=== PATIENT | male | born 2000 | race Caucasian/White ===

== ENCOUNTER 2023-11-28 07:03 | Emergency (ER) | payer OTHER, SELFPAY ==
[2023-11-28 07:04] VITALS: BP 122/71; PULSE 66; RESP 18; TEMP 36.9; O2SAT 100; BMI 22.8
[2023-11-28 07:42] LABS: Add Manual Diff / Slide Review NO; Basophils Absolute Auto 0 /uL (0-100); Basophils Percent Auto 0.3 % (0-2); Eosinophils Absolute Auto 100 /uL (0-450); Eosinophils Percent Auto 0.9 % (2-4); Hematocrit 44.2 % (41-53); Lymphocytes Absolute Auto 1500 /uL (1100-4500); Lymphocytes Percent Auto 14.8 % (25-40); Mean Corpuscular HGB Conc 33.9 % (30-36); Mean Corpuscular Hemoglobin 29.2 PG (26-34); Mean Corpuscular Volume 86.1 fL (80-100); Monocytes Absolute Auto 700 /uL (0-900); Monocytes Percent Auto 6.9 % (3-14); Neutrophils Absolute Auto 8100 /uL (1500-7000); Neutrophils Percent Auto 77.1 % (50-75); Platelet Count 234 X10^3/uL (150-400); Red Blood Cell Count 5.14 X10^6/uL (4.5-5.9); Red Cell Distribution Width 13.9 % (11.6-14.8); White Blood Cell Count 10.4 X10^3/uL (4.5-11.0)
[2023-11-28 07:58] LABS: Acetaminophen < 10 ug/mL (10-30); Alanine Aminotransferase 24 IU/L (<50); Albumin Globulin Ratio 1.6 (1.0-2.8); Alkaline Phosphatase 71 U/L (38-126); Aspartate Aminotransferase 36 IU/L (17-59); BUN Creatinine Ratio 13.3 (6-22); Bilirubin Total 0.7 mg/dL (0.2-1.3); Blood Urea Nitrogen 11 mg/dL (9-20); Calcium 9.2 mg/dL (8.4-10.2); Carbon Dioxide 30 mmol/L (22-32); Chloride 102 mmol/L (98-107); Estimated Glomerular Filt Rate > 60 mL/min (>60); Ethanol (ETOH) < 10 mg/dL; Globulin 3.2 g/dL (1.7-4.1); Glucose 102 mg/dL (70-100); HEMOLYSIS 28 (0-50); Salicylate < 1.0 mg/dL (<20); Sodium 139 mmol/L (137-145); Total Protein 8.2 g/dL (6.3-8.2)
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
[2023-11-28 08:32] LABS: Thyroid Stimulating Hormone 1.53 uIU/mL (0.47-4.68)
[2023-11-28 10:00] LABS: UR Morphine/Opiate cutoff 300 Negative (Negative); Ur Creatinine Normal (Normal); Ur Specific Gravity Normal (Normal); Urine Amphetamines Negative (Negative); Urine Barbiturates Negative (Negative); Urine Benzodiazepines Negative (Negative); Urine Cocaine Negative (Negative); Urine MDMA Negative (Negative); Urine Methadone Negative (Negative); Urine Methamphetamines Negative (Negative); Urine Oxycodone Negative (Negative); Urine Phencyclidine Negative (Negative); Urine Tetrahydrocannabinol Negative (Negative); Urine Tricyclic Antidepressant Negative (Negative); Urine pH Normal (Normal)
--- NOTE | 2023-11-28 11:52 | CM.SWNOTE ---
ED BIOLOGICAL TECHNICIAN Assessment BIOLOGICAL TECHNICIAN - Drop Wire Hanger Assessment BIOLOGICAL TECHNICIAN/Drop Wire Hanger Assessment Time Spent with Patient Start date 11/28/23 Visit Start Time 11:25 End date 11/28/23 Visit End Time 11:40 Total time Care Management spent on 15 Minutes patient visit-in minutes Mental Health Screening Include Onset, Duration, Intensity Presenting Problem Patient presents to the ED via EMS due to concern for Depression and SI. Patient denies substance use but in triage states that over the past month he was engaging in increased binge drinking, patient states last drink was 11/25/23. Patient endorses SI has been pretty consistent with thoughts of plan to overdose and in his sleep. Patient states he is having some thoughts of SI now. Precipitating Event(s) Patient endorses concern for increase in life stress with family in [place]. Patient does not go into details about this, patient states he does not talk to anyone about his SI and he does not have any local supports or friends. Patient Strengths Patient told someone at work last night about his SI when they inquired that something was wrong. Patient is voluntary to seek treatment. Current Behavioral Health Provider(s) No current provider, No rx. Include Facility, Provider, Ph. # Psych. Hx Mental Health and Chemical No formal dx, patient endorses Dependency SI with thoughts of plans, and Depression. Patient denies use of any substances, per triage patient was increasing his ETOH use in the last month but stopped drinking a few days ago. Family Hx of Behavioral Abuse None reported Psychiatric Hospitalizations (date(s)/ No hx location) Psychosocial information & Support Patient is 23 y/o male who Systems resides in [place], [place]. Patient denies any local supports or friends, patient states there is a lot of stress with his family right now. 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 Patient also works a second job at [employer] in [employer]. Patient left his phone at work when he left via EMS and missed his shift at [employer] today and requested that BIOLOGICAL TECHNICIAN call [employer] to let them know he is in the ED. Legal Concerns Legal Matters - Outstanding Issues None reported Mental Status Orientation (Person/Place/Time) A/Ox4 Stated Mood okay Affect (Congruent with Mood?) flat, somewhat congruent with mood Thought Content - Specify/Describe Patient denies visual or Obsessions, Delusions, Hallucinations auditory hallucinations, patient denies concern for paranoia. Thought Processes (Axygbvv-Ojmgqnlz-Kfgl coherent Hrtnxhph-Jmxgqfge-Uuzadptfjr- Gojbcauyriatex-Pwyyzqg-Tlpaclzjcole- Thought Blocking) Speech (Ddalqi-Vlhx-Tznzfcj-Rapid-Soft- soft, slow Loud-Pressured) Motor (Chbqvo-Lygwbjxyy-Uvgd-Other) normal Insight (Moll-Sily-Oari/Limited) fair Judgement (Vnkv-Gedu-Dpnq/Limited) fair Impulse Control (Adequate-Impaired) Adequate Memory (Zftcrbxfw-Gxpeif-Anyggh, Intact, not formally assessed Impaired-Intact) Concentration (Intact-Impaired) intact Attention (Intact-Impaired) intact Behavior (Appropriate-Inappropriate) appropriate Additional Comment calm, cooperative, and communicative. Risk Assessment Suicidal Ideation (Plan) Yes Homicidal Ideation (Plan) No Comment Patient denies HI. Patient states he has been experiencing SI for a while with thoughts of dying in his sleep. Patient states plans to overdose or something like that. Patient denies current intent to act on SI, but states that SI has been increasing with family stress. Intervention Intervention BIOLOGICAL TECHNICIAN enters room to meet with patient. Patient endorses concern for increase in life stress from family, patient endorses increase in SI with thoughts of plans. Patient states he does not talk to anybody about SI and does not have any supports he can talk to. BIOLOGICAL TECHNICIAN discusses voluntary inpatient hospitalization and [facility] and patient endorses agreement and understanding. It is the opinion of this BIOLOGICAL TECHNICIAN that patient is appropriate for and will benefit from voluntary Inpatient hospitalization for safety, crisis stabilization and medication management. BIOLOGICAL TECHNICIAN reviews this with ED provider who indicates agreement and understanding. Plan RA Plan BIOLOGICAL TECHNICIAN to seek voluntary placement for patient at [facility]. YUMIKO Salazar
[2023-11-28 12:04] LABS: COVID19 -Nasal RAPID Negative (Negative)
[2023-11-28 17:01] VITALS: BP 115/60; PULSE 61; RESP 16; TEMP 36.6; O2SAT 100
--- NOTE | 2023-11-28 17:03 | PC.NURSE ---
Patient's supervisor electric motor testing and Chief are in the room with him prior to transfer to [facility]. They gave their names and numbers for follow up/ride home: Jose D (supervisor electric motor testing): [phone] and Olivier (Chief): [phone]
--- NOTE | 2023-11-28 18:59 | CM.SWNOTE ---
Addendum entered by Amanda Molina 11/28/23 19:02: Patient's Chain of command and chief informed of patient's presentation at ED and transfer to [facility] and arrived to ED to be with patient awaiting transfer. YUMIKO Salazar Original Note: ED AP PROCESSOR Note Patient is accepted at [facility] by Dr. Chase, RN to RN is [phone]. [facility] was supposed to arrive at 1730, due to traffic transport delayed to 1900. Plan: patient to transfer to [facility] via S for voluntary inpatient tx. YUMIKO Salazar
== END 2023-11-28 19:11 ==
PROVIDERS: Emergency Provider Emergency Medicine
DX: R45.851 Suicidal ideations (principal); Z11.52 Encounter for screening for COVID-19
CPT/HCPCS: 36415; 80053; 80305; 80320; 80329; 81003; 84439; 84443; 85025; 87635; 99284; G0480

== ENCOUNTER 2024-05-02 08:53 | Emergency (ER) | payer OTHER, SELFPAY ==
[2024-05-02 09:03] VITALS: BP 120/60; PULSE 66; RESP 14; TEMP 36.4; O2SAT 98; BMI 23.6
--- NOTE | 2024-05-02 09:07 | PC.NURSE ---
Pt has a cough,nasal drainage and sore throat. Pts throat does not appear red. Pt vomited x1 last night.
--- NOTE | 2024-05-02 09:13 | ED.URI ---
HPI - URI/Sore Throat General Chief Complaint: Upper Respiratory Symptoms Stated Complaint: vomitting, sore throat, coughing Time Seen by Provider: 05/02/24 08:55 Source: patient Mode of arrival: Ambulatory History of Present Illness HPI Narrative: 24-year-old male with no reported past medical history presents with 1 day of sore throat, nonproductive cough, 2 episodes of emesis. States that this morning noted a little bit of irritation in his left eye. He was at work today and he was told to come in for evaluation. No medications taken prior to arrival. Related Data Previous Rx's Medication Instructions Recorded ondansetron 4 mg disintegrating 4 mg PO Q8H PRN nausea and 05/02/24 tablet vomiting #30 tabs Allergies Allergy/AdvReac Type Severity Reaction Status Date / Time No Known Drug Allergies Allergy Verified 05/02/24 09:03 Patient History Social History Smoking Status: Former smoker Smoking Status: Former smoker tobacco type: vaping alcohol intake frequency: a few times a week Alcohol type: beer, wine and hard liquor Exam Initial Vital Signs Initial Vital Signs: Vital Signs Temperature 97.6 F 05/02/24 09:03 Pulse Rate 66 05/02/24 09:03 Respiratory Rate 14 05/02/24 09:03 Blood Pressure 120/60 05/02/24 09:03 Pulse Oximetry 98 05/02/24 09:03 Oxygen Delivery Method Room Air 05/02/24 09:03 Const: Awake, alert, no acute distress, nontoxic appearing HEENT: Minimal left-sided conjunctival erythema, no purulent discharge, mild pharyngeal erythema without edema or exudates, TM normal bilaterally Cardiac: regular rate, regular rhythm RESP: unlabored, speaking in complete sentences without dyspnea GI: Soft, nontender, nondistended Skin: Warm, Dry, intact, no rashes Neuro: AO x3, CN II-XII grossly intact, moves all extremities Course Orders Ordered: ED Orders 05/02/24 09:18 Strep Grp A by PCR Rapid Stat Vital Signs Vital signs: Vital Signs - 8 hr 05/02/24 09:03 Temperature 97.6 F Pulse Rate 66 Respiratory Rate 14 Blood Pressure 120/60 Pulse Oximetry 98 Oxygen Delivery Method Room Air MDM - URI/Sore Throat Lab Data Labs: Lab Results 05/02/24 Range/Units 09:18 Group A Strep (PCR) Negative (Negative) MDM Narrative Medical decision making narrative: Well-appearing patient with 1 day of symptoms. Exam and history most consistent with viral syndrome, however with mild pharyngeal erythema a strep swab was obtained to rule out strep throat. Patient's eye exam more consistent with viral etiology, there was no purulent discharge or eyelid matting to suggest bacterial conjunctivitis. Strep swab negative. Patient informed of swab results, recommended supportive care measurements at home including Tylenol and ibuprofen as needed for discomfort and gnlh-sxx-nufhqks eyedrops for any irritation. Nausea medication sent to pharmacy of choice. Note for work provided. Discharge Plan Departure Patient Disposition: Home Clinical Impression: Upper respiratory infection Instructions: DI for Viral Upper Respiratory Infection -- Adult Activity Restrictions/Additional Instructions: Your strep swab was negative. This is likely a viral infection. Nausea medication has been sent to your pharmacy. Take Tylenol and ibuprofen as needed for discomfort. Use xuzr-wak-qsyxooc relief drops for your eyes as needed. If you notice significant discharge from your eyes or significant crusting in the mornings you may need to be re-evaluated for bacterial pinkeye, however at this time your exam is more consistent with a viral cause of irritation. Prescriptions: New ondansetron 4 mg tablet,disintegrating 4 mg PO Q8H PRN (Reason: nausea and vomiting) Qty: 30 0RF Stand Alone Forms: Patient Portal/API/Survey, Work Release Note
[2024-05-02 10:20] LABS: Strep Grp A by PCR Rapid Negative (Negative)
== END 2024-05-02 10:38 | disposition home or self-care (01) ==
PROVIDERS: Emergency Provider Emergency Medicine
DX: J06.9 Acute upper respiratory infection, unspecified (principal); R05.9 Cough, unspecified
CPT/HCPCS: 87651; 99281; 99282

== ENCOUNTER 2024-07-24 08:55 | Emergency (ER) | payer OTHER, SELFPAY ==
[2024-07-24 08:55] VITALS: BP 131/65; PULSE 69; RESP 17; TEMP 36.7; O2SAT 99; BMI 25.1
--- NOTE | 2024-07-24 09:01 | ED_ITS ---
HPI - Psych General Chief Complaint: Psychiatric Symptoms Stated Complaint: SI Time Seen by Provider: 07/24/24 09:00 History of Present Illness HPI Narrative: Patient brought in by ambulance from [facility]. Patient was stopped by his work partner, patient had his service pistol out to shoot himself. Patient has had suicide ideations for many years but today was a breaking point for him. He has never tried shooting herself in the past. No ingestion or overdose in the past or present. No auditory or visual hallucinations. He is not on any medications for psychiatric care. Patient is cooperative at this time. He is from [place]. He has been here for 6 years. He has very little contact with his family and has not had very many visits. No recent illness. Related Data Previous Rx's Medication Instructions Recorded ondansetron 4 mg disintegrating 4 mg PO Q8H PRN nausea and 05/02/24 tablet vomiting #30 tabs Allergies Allergy/AdvReac Type Severity Reaction Status Date / Time No Known Drug Allergies Allergy Verified 05/02/24 09:03 Review of Systems Review of Systems Narrative: GENERAL: Negative chills, fatigue, malaise, fever, sweats. HEENT: Negative sinus pain, ear pain, sore throat RESPIRATORY: Negative dyspnea, cough CARDIOVASCULAR: Negative chest pain, palpitations GASTROINTESTINAL: Negative nausea, vomiting, abdominal pain : Negative dysuria, frequency, hematuria MUSCULOSKELETAL: Negative muscle or bony pain SKIN: Negative rash, skin lesions NEUROLOGIC: Negative weakness, numbness PSYCHIATRIC: Positive suicide ideations positive suicide attempt, positive anxiety ROS Unobtainable: All systems reviewed & are unremarkable except as noted in HPI and below Patient History Social History Smoking Status: Former smoker Smoking Status: Former smoker tobacco type: vaping alcohol intake frequency: a few times a week Alcohol type: beer, wine and hard liquor Exam Narrative Exam Narrative: GENERAL: in no distress, not toxic not dyspneic HEAD: Normocephalic. EYES: Pupils equal round ENT: Mucous membranes moist. NECK: Trachea midline. CARDIOVASCULAR: Regular rate and rhythm RESPIRATORY: Clear to auscultation. Breath sounds equal bilaterally. No wheezes, rales, or rhonchi. GASTROINTESTINAL: Abdomen soft, non-tender EXTREMITIES: No gross deformities. BACK: No flank tenderness. NEURO: AOx4. Clear speech SKIN: Warm and dry PSYCH: Patient is slightly anxious. Is cooperative. Positive SI, no rapid speech or pressured speech. Does have flat affect. Initial Vital Signs Initial Vital Signs: Vital Signs Temperature 98.1 F 07/24/24 08:55 Pulse Rate 69 07/24/24 08:55 Respiratory Rate 17 07/24/24 08:55 Blood Pressure 131/65 07/24/24 08:55 Pulse Oximetry 99 07/24/24 08:55 Oxygen Delivery Method Room Air 07/24/24 08:55 Course Orders Ordered: ED Orders 07/24/24 09:10 Urinalysis and Microscopic Stat Urine Drug Screen, Rapid Stat 07/24/24 09:15 Acetaminophen Stat Complete Blood Count AUTO DIFF Stat Comprehensive Metabolic Panel Stat Ethanol (ETOH) Stat Salicylate Stat TSH w/ Reflex to FT4 Stat 07/24/24 09:31 Consult to [facility] [place] [facility] Custodian Stat Vital Signs Vital signs: Vital Signs - 8 hr 07/24/24 08:55 07/24/24 12:54 Temperature 98.1 F Pulse Rate 69 57 L Respiratory Rate 17 14 Blood Pressure 131/65 99/56 L Pulse Oximetry 99 100 Oxygen Delivery Method Room Air Room Air MDM - Psych Lab Data 07/24/24 09:15 07/24/24 09:15 Labs: Lab Results 07/24/24 07/24/24 07/24/24 Range/Units 09:10 09:10 09:15 WBC 7.5 (4.5-11.0) X10^3/uL RBC 5.12 (4.5-5.9) X10^6/uL Hgb 14.8 (13.5-17.5) g/dL Hct 43.8 (41-53) % MCV 85.5 (80-100) fL MCH 28.8 (26-34) PG MCHC 33.7 (30-36) % RDW 13.6 (11.6-14.8) % Plt Count 239 (150-400) X10^3/uL Neut % (Auto) 70.7 (50-75) % Lymph % (Auto) 21.0 L (25-40) % [place] % (Auto) 6.3 (3-14) % Eos % (Auto) 1.3 L (2-4) % Baso % (Auto) 0.7 (0-2) % Neut # (Auto) 5300 (7798-5197) /uL Lymph # (Auto) 1600 (0164-1673) /uL [place] # (Auto) 500 (0-900) /uL Eos # (Auto) 100 (0-450) /uL Baso # (Auto) 100 (0-100) /uL Sodium 138 (137-145) mmol/L Potassium 4.6 (3.4-5.1) mmol/L Chloride 100 (98-107) mmol/L Carbon Dioxide 28 (22-32) mmol/L BUN 13 (9-20) mg/dL Creatinine 0.99 (0.66-1.25) mg/dL Estimated GFR > 60 (>60) mL/min BUN/Creatinine Ratio 13.1 (6-22) Glucose 98 (70-100) mg/dL Calcium 9.4 (8.4-10.2) mg/dL Total Bilirubin 0.6 (0.2-1.3) mg/dL AST 30 (17-59) IU/L ALT 24 (<50) IU/L Alkaline Phosphatase 60 (38-126) U/L Total Protein 8.0 (6.3-8.2) g/dL Albumin 4.9 (3.5-5.0) g/dL Globulin 3.1 (1.7-4.1) g/dL Albumin/Globulin Ratio 1.6 (1.0-2.8) TSH 1.69 (0.47-4.68) uIU/mL Urine Color Yellow Urine Appearance Clear Urine pH 6.0 Normal (4.5-8.0) Ur Specific [place] 1.010 (1.000-1.035) Urine Protein Negative (Negative) Urine Glucose (UA) Negative (Negative) g/dL Urine Ketones Negative (NEGATIVE) Urine Occult Blood Negative (Negative) Urine Nitrate Negative (Negative) Urine Bilirubin Negative (NEGATIVE) Urine Urobilinogen 0.2 (0.2) E.U./dL Ur Leukocyte Esterase Negative (NEGATIVE) Urine RBC None seen (0-5/HPF) Urine WBC None seen (0-5/HPF) Ur Squamous Epith Cells None seen (0-5/HPF) Urine Bacteria None seen (None) Ur Culture Indicated? Cult not indicated Vol Urine Centrifuged 10ml (spun) Salicylates < 1.0 (<20) mg/dL U Opiates 300ng/mL cut Negative (Negative) Ur Oxycodone Screen Negative (Negative) Urine Methadone Screen Negative (Negative) Acetaminophen < 10 (10-30) ug/mL Ur Barbiturates Screen Negative (Negative) U Tricyclic Antidepress Negative (Negative) Ur Phencyclidine Scrn Negative (Negative) Ur Amphetamines Screen Negative (Negative) U Methamphetamines Scrn Negative (Negative) Ur MDMA Scrn (Ecstasy) Negative (Negative) U Benzodiazepines Scrn Negative (Negative) Urine Cocaine Screen Negative (Negative) U Marijuana (THC) Screen Negative (Negative) Urine Specific [place] Normal (Normal) Ethyl Alcohol < 10 ( - 10) mg/dL Ur Creatinine Normal (Normal) MDM Narrative Medical decision making narrative: Patient brought in by ambulance from [facility]. Patient was stopped by his work partner, patient had his service pistol out to shoot himself. Patient has had suicide ideations for many years but today was a breaking point for him. He has never tried shooting herself in the past. No ingestion or overdose in the past or present. No auditory or visual hallucinations. He is not on any medications for psychiatric care. Patient is cooperative at this time. He is from [place]. He has been here for 6 years. He has very little contact with his family and has not had very many visits. No recent illness. After history and exam, CBC CMP TSH alcohol Tylenol aspirin drug screen, likely transfer to [facility], for behavioral health care. Suicide precautions [facility] Medical records reviewed: No recent visit for this complaint Differential considered: Includes but not limited to suicide attempt suicide ideation depression Lab Test results independently reviewed as above. Pertinent findings: WBC 7.5 hemoglobin 14.8 sodium 138 potassium 4.6 TSH 1.69 AST 30 ALT 24 urinalysis negative nitrate negative leukocyte esterase drug screen negative aspirin negative Tylenol negative alcohol negative Consultations: [facility] system has been contact by social work here, they will accept patient. 1:10 p.m.. Spoke with [facility] psychiatry, Dr. Zapata, will accept patient Treatments: None indicated at this time Re-evaluations: 11:20 a.m.. Patient has remained cooperative. Not combative. Patient is medically cleared for behavioral health transfer Discussion: Appropriate for transfer for higher level of care and continue care with [facility] Diagnosis: Suicide attempt Discharge Plan Departure Patient Disposition: Xfer Psychiatric Hosp Clinical Impression: Suicide attempt Prescriptions: No Action ondansetron 4 mg tablet,disintegrating 4 mg PO Q8H PRN (Reason: nausea and vomiting) Qty: 30 0RF
[2024-07-24 09:23] LABS: Add Manual Diff / Slide Review NO; Basophils Absolute Auto 100 /uL (0-100); Basophils Percent Auto 0.7 % (0-2); Eosinophils Absolute Auto 100 /uL (0-450); Eosinophils Percent Auto 1.3 % (2-4); Hematocrit 43.8 % (41-53); Hemoglobin 14.8 g/dL (13.5-17.5); Lymphocytes Absolute Auto 1600 /uL (1100-4500); Mean Corpuscular HGB Conc 33.7 % (30-36); Mean Corpuscular Hemoglobin 28.8 PG (26-34); Mean Corpuscular Volume 85.5 fL (80-100); Monocytes Absolute Auto 500 /uL (0-900); Monocytes Percent Auto 6.3 % (3-14); Neutrophils Absolute Auto 5300 /uL (1500-7000); Neutrophils Percent Auto 70.7 % (50-75); Platelet Count 239 X10^3/uL (150-400); Red Blood Cell Count 5.12 X10^6/uL (4.5-5.9); Red Cell Distribution Width 13.6 % (11.6-14.8); White Blood Cell Count 7.5 X10^3/uL (4.5-11.0)
[2024-07-24 09:24] LABS: Appearance Urine UA CLEAR; Bilirubin Urine UA NEGATIVE (NEGATIVE); Color Urine UA YELLOW; Glucose Urine UA NEGATIVE (Negative); Ketones Urine UA NEGATIVE (NEGATIVE); Leukocyte Esterase Urine UA NEGATIVE (NEGATIVE); Nitrite Urine UA NEGATIVE (Negative); Occult Blood Urine UA NEGATIVE (Negative); Protein Urine UA NEGATIVE (Negative); Urobilinogen Urine UA 0.2 E.U./dL (0.2)
[2024-07-24 09:30] LABS: UR Morphine/Opiate cutoff 300 Negative (Negative); Ur Creatinine Normal (Normal); Ur Specific Gravity Normal (Normal); Urine Amphetamines Negative (Negative); Urine Barbiturates Negative (Negative); Urine Benzodiazepines Negative (Negative); Urine Cocaine Negative (Negative); Urine MDMA Negative (Negative); Urine Methadone Negative (Negative); Urine Methamphetamines Negative (Negative); Urine Oxycodone Negative (Negative); Urine Phencyclidine Negative (Negative); Urine Tetrahydrocannabinol Negative (Negative); Urine Tricyclic Antidepressant Negative (Negative); Urine pH Normal (Normal)
--- NOTE | 2024-07-24 09:31 | PC.NURSE ---
At this time [facility] was called with initial intake of patient given. Results to be faxed and reviewed by provider once they are obtained and patient is medically cleared.
[2024-07-24 09:35] LABS: Bacteria Urine None Seen; Culture Indicated Urine Cult Not Indicated; RBC Urine None Seen (0-5/HPF); Squamous Epithelial Cell Urine None Seen (0-5/HPF); Urine Volume 10mL (spun); WBC Urine None Seen (0-5/HPF)
[2024-07-24 09:40] LABS: Acetaminophen < 10 ug/mL (10-30); Alanine Aminotransferase 24 IU/L (<50); Albumin 4.9 g/dL (3.5-5.0); Albumin Globulin Ratio 1.6 (1.0-2.8); Alkaline Phosphatase 60 U/L (38-126); Aspartate Aminotransferase 30 IU/L (17-59); BUN Creatinine Ratio 13.1 (6-22); Bilirubin Total 0.6 mg/dL (0.2-1.3); Blood Urea Nitrogen 13 mg/dL (9-20); Calcium 9.4 mg/dL (8.4-10.2); Carbon Dioxide 28 mmol/L (22-32); Chloride 100 mmol/L (98-107); Estimated Glomerular Filt Rate > 60 mL/min (>60); Ethanol (ETOH) < 10 mg/dL; Globulin 3.1 g/dL (1.7-4.1); Glucose 98 mg/dL (70-100); HEMOLYSIS < 15 (0-50); Potassium 4.6 mmol/L (3.4-5.1); Salicylate < 1.0 mg/dL (<20); Sodium 138 mmol/L (137-145)
[2024-07-24 10:16] LABS: TSH w/ Reflex to FT4 1.69 uIU/mL (0.47-4.68)
--- NOTE | 2024-07-24 11:08 | PC.NURSE ---
Chart and results faxed to [facility]. At this time I spoke with [facility] and asked if the patient should have any personnel or a Commanding Officer here to sign off on the patient. There is no one here with the patient. [facility] reports they do not need this as the patient is voluntary, however if the patient becomes involuntary, they will need to speak to His commanding officer. 1124 I received a call from the patient's Chief Valenzuela Officer Carlos at this time and her boss Yusef Baxter. Patient confirms identity of Carlos as his SEASONAL GREENERY BUNDLER and gave permission for me to speak with her. I gave her the report as I had received it from EMS and then updated her on the plan to send the patient to [facility]. She reports she would like to come and see the patient, I asked permission of the patient and he reports he is ok with this plan.
--- NOTE | 2024-07-24 11:40 | CM.SWNOTE ---
ED GRIT BLASTER Assessment Note: Pt is a 24yo male, resident of [place], presented to the ED for suicidal ideation. Pt's Primary Care Provider is at the [facility] and insurance is [employer]. Reviewed chart and discussed with multidisciplinary team pt's medical status and initial discharge needs. Per MD, pt is medically cleared and referral has already been sent to [facility] ([facility]). Per RN, pt is voluntary GRIT BLASTER spoke with [facility], requesting updated lab results and documentation in ED summary of pt's medical clearance. GRIT BLASTER sent updated ED summary. GRIT BLASTER reviews this with ED provider Dr. Arredondo who indicates agreement and understanding. Dr. Arredondo spoke with [facility] transfer center and would like a formal biopsychosocial assessment. GRIT BLASTER to complete. Plan: Anticipating transfer to [facility] for inpatient psychiatric treatment. ED staff to follow closely for coordination of discharge plans. YUMIKO Cui
[2024-07-24 12:54] VITALS: BP 99/56; PULSE 57; RESP 14; O2SAT 100
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
--- NOTE | 2024-07-24 13:23 | CM.SWNOTE ---
ED RAZOR GRINDER Note: ED RAZOR GRINDER completed psychosocial assessment with patient and coordinated a MD-MD report with [facility]. ED RAZOR GRINDER participated in - report with Dr. Helder Zapata at [facility] and Dr. Arredondo at , relaying pt SI and plans accumulated from assessment. Patient has been accepted for inpatient treatment at 1308. Accepting Provider: Dr. Helder Zapata RN-RN Report#: [phone] ED RAZOR GRINDER calls [facility] and coordinates transport to [facility] [address]. [facility] ETA at 1445 to arrive at 1745. ED RAZOR GRINDER notified [facility] [place] [place], ED RN, and patient. YUMIKO Cui
[2024-07-24 14:07] VITALS: BP 106/58; PULSE 57; RESP 15; TEMP 36.3; O2SAT 99
--- NOTE | 2024-07-24 14:55 | PC.NURSE ---
Patient's belongings were given to EMT before patient left.
== END 2024-07-24 15:03 ==
PROVIDERS: Emergency Provider Emergency Medicine
DX: T14.91XA Suicide attempt, initial encounter (principal)
CPT/HCPCS: 36415; 80053; 80305; 80320; 80329; 81001; 84443; 85025; 99284; G0480